=== PATIENT | female | born 1960 | race Caucasian/White ===

== ENCOUNTER 2022-01-21 06:11 | Day surgery (SDC) | payer BC ==
[2022-01-16 10:04] LABS: Absolute Lymphocytes (CBC) 2.5 K/uL (0.7-4.9); Hematocrit 38.7 % (36.0-45.0); Lymphocytes % 30.6 % (15.3-44.8); MPV 7.6 fL (7.6-11.3); RBC Red Blood Cell Count 4.28 M/uL (3.86-4.86)
[2022-01-16 10:09] LABS: Urine Appearance CLOUDY (Clear); Urine Bilirubin NEGATIVE (Negative); Urine Blood TRACE (Negative); Urine Color YELLOW (Yellow); Urine Glucose NEGATIVE (Negative); Urine Protein NEGATIVE (Negative); Urine Urobilinogen 0.2 mg/dL (0.2-1.0)
[2022-01-16 10:13] LABS: Urine Microscopic Reflex ORDER UMIC
[2022-01-16 10:13] LABS: Potassium 4.1 mmol/L (3.5-5.1)
[2022-01-16 10:26] LABS: Urine Bacteria 20-50 /HPF (<20); Urine RBC <5 /HPF (NONE SEEN)
[2022-01-16 10:27] LABS: Urine Mucus 1+ /HPF (NONE SEEN)
[2022-01-21] MEDS ORDERED: MIDAZOLAM HCL 2 MG/2 ML INJ ONE (06:27)
[2022-01-21] MEDS ORDERED: FENTANYL CITR 250 MCG/5 ML ONE (06:27)
[2022-01-21] MEDS ORDERED: propofoL 200 MG/20 ML VIAL IV ONE (06:27)
[2022-01-21] MEDS ORDERED: KETAMINE HCL 500 MG/5 ML VIAL ONE (06:27)
[2022-01-21] MEDS ORDERED: LIDOCAINE 2% MPF 5 ML VIAL ONE (06:27)
[2022-01-21] MEDS ORDERED: NS 0.9% VIAL 10 ML ONE (06:27)
[2022-01-21] MEDS ORDERED: dexAMETHasone 10 MG/ML VIAL ONE (06:27)
[2022-01-21] MEDS ORDERED: ROCURONIUM 50 MG/5 ML VIAL IV ONE ×2 (06:27→13:13)
[2022-01-21] MEDS ORDERED: ONDANSETRON 4 MG/2 ML VIAL ONE ×2 (06:30→14:15)
[2022-01-21] MEDS ORDERED: SCOPOLAMINE HYDROBROMIDE PATCH TD ONE (06:46)
[2022-01-21] MEDS ORDERED: CEFAZOLIN/SWI 2gm 2 GM/20 ML SYR ONE (06:46)
[2022-01-21] MEDS ORDERED: Ringers Lactate 1,000 ML IV ONE ×3 (06:46→11:01)
[2022-01-21] MEDS ORDERED: BUPIVACAINE 0.25% PF 10 ML VIAL ONE ×2 (06:47→07:27)
[2022-01-21] MEDS ORDERED: NA CHLORIDE 0.9% 1,000 ML ONE (06:48)
[2022-01-21] MEDS ORDERED: NA CHLORIDE 0.9% 0 ML ONE ×2 (06:48→21:21)
[2022-01-21] MEDS ORDERED: LIDOCAINE 1% W/EPI 1:100,000 10 ML VIAL ONE (06:48)
[2022-01-21] MEDS ORDERED: VASOPRESSIN 20 UNIT/ML VIAL ONE (06:49)
[2022-01-21] MEDS ORDERED: CEFAZOLIN SODIUM 1 GM/VIAL ONE ×2 (06:50→21:21)
[2022-01-21] MEDS ORDERED: EPHEDRINE SULF 50 MG/ML VIAL ONE (08:13)
[2022-01-21] MEDS ORDERED: BUPIVACAINE 0.5% Inj,MDV 50 mL VIAL IJ ONE (08:30)
[2022-01-21] MEDS ORDERED: VECURONIUM 10 MG/VIAL IV ONE (09:30)
[2022-01-21] MEDS ORDERED: FENTANYL CITR 100 MCG/2 ML ONE ×2 (11:36→12:57)
[2022-01-21] MEDS ORDERED: GLYCOPYRROLATE 0.2 MG/ML SYR ONE (14:10)
[2022-01-21] MEDS ORDERED: NEOSTIGMINE 1 MG/ML -5 ML ONE (14:10)
[2022-01-21] MEDS ORDERED: ACETAMINOPHEN 500 MG TAB PO PRN (14:50)
[2022-01-21] MEDS ORDERED: ONDANSETRON 4 MG/2 ML VIAL IV PRN (14:50)
[2022-01-21] MEDS ORDERED: PROMETHAZINE INJ 25 MG/ML AMP IV PRN (14:50)
--- NOTE | 2022-01-21 14:57 | P.BOP ---
Preoperative diagnosis: stage 2uterovaginal prolapse, PMB, post wall defect, EDU Postoperative diagnosis: same and sigmoid cecal adhesions Primary procedure: TLH RSO KWABENA 50min LSCP post and PB repairs, Bulking cysto Chief Gauger: Jessy Taylor Estimated blood loss: min Specimen: uterus right ovary and tube Findings: 0/0/-2/4.5/mod/8/0/0/-3 Anesthesia: General Complications: None Drain(s): Urinary catheter Implants: Upsylon Fluids & blood products: UO 200/ LR 2L Transferred to: Recovery Room Condition: Good
[2022-01-21 15:02] VITALS: O2SAT 100
[2022-01-21] MEDS ORDERED: IBUPROFEN 600 MG TAB PO PRN (15:18)
[2022-01-21 16:06] VITALS: BMI 31.8
[2022-01-21] MEDS ORDERED: INFLUENZA VACCINE (for 6+ mo) 0.5 ML DOSE IMVAC ONE (18:00)
[2022-01-21] MEDS: MEPERIDINE HCL 50 MG/ML IV PRN (18:28)
[2022-01-21] MEDS ORDERED: HOME MED 1 EA UNK (Lisinopril [Zestril] 2.5 MG Tablet) PO SCH (21:00)
[2022-01-21] MEDS ORDERED: ROPINIROLE HCL 1 MG TAB PO SCH ×2 (21:00)
[2022-01-21] MEDS ORDERED: lisinopriL 5 MG TAB PO SCH (21:00)
[2022-01-21] MEDS: Ringers Lactate 1,000 ML IV SCH (21:28)
[2022-01-21] MEDS: HYDROCODONE/APAP 5/325 MG TAB PO PRN (21:29)
[2022-01-21] MEDS: CEFAZOLIN 1 GM in NA CHLORIDE 0.9% 50 ML IVPB SCH (21:41)
[2022-01-21] MEDS ORDERED: NA CHLORIDE 0.9% 50 ML ONE (21:43)
[2022-01-22] MEDS: MEPERIDINE HCL 50 MG/ML IV PRN ×2 (00:08→06:06)
[2022-01-22] MEDS ORDERED: NA CHLORIDE 0.9% 0 ML ONE (05:19)
[2022-01-22] MEDS ORDERED: CEFAZOLIN SODIUM 1 GM/VIAL ONE (05:19)
[2022-01-22] MEDS: CEFAZOLIN 1 GM in NA CHLORIDE 0.9% 50 ML IVPB SCH (05:26)
[2022-01-22] MEDS: Ringers Lactate 1,000 ML IV SCH (05:29)
[2022-01-22 06:22] LABS: Absolute Lymphocytes (CBC) 2.7 K/uL (0.7-4.9); Hematocrit 32.8 % (36.0-45.0); Lymphocytes % 27.6 % (15.3-44.8); MPV 7.4 fL (7.6-11.3); RBC Red Blood Cell Count 3.62 M/uL (3.86-4.86)
[2022-01-22] MEDS: HYDROCODONE/APAP 5/325 MG TAB PO PRN (11:26)
[2022-01-22 11:29] VITALS: BP 121/66; TEMP 97.9
--- NOTE | 2022-01-26 06:53 | OP ---
Date of Procedure: 01/21/2022 Surgeon: Raina Ron MD Shipping/Receiving Clerk: Jessy Taylor Preoperative Diagnoses: 1.Stage II uterovaginal prolapse. 2.Postmenopausal bleeding. 3.Posterior wall defect. 4.Stress urinary incontinence. Postoperative Diagnoses: 1.Stage II uterovaginal prolapse. 2.Postmenopausal bleeding. 3.Posterior wall defect. 4.Stress urinary incontinence. 5.Sigmoid and cecal adhesion. Procedures Performed: 1.Total laparoscopic hysterectomy, right salpingo-oophorectomy, lysis of adhesion, which took about 50 minutes to take down the cecal adhesions from the anterior abdominal wall and sigmoid adhesions fr om the lateral wall, as well as left adnexa and the posterior cul-de-sac as well as the right, then t he left lateral wall. 2.Laparoscopic sacrocolpopexy using Epsilon BioMesh. 3.Posterior wall repair and perineal body repair. 4.Urethral bulking with Bulkamid and cystoscopy. Anesthesia: General endotracheal. Estimated Blood Loss: Minimal. Complications: No complications. Drains: Sofia catheter. Specimens: Uterus, right ovary and tube. Condition: Stable. Fluids: 2000. Urine Output: 200. Findings: There are sigmoid and cecal adhesions to the anterior abdominal wall on the right side and sigmoid adhesions to the lateral wall. The left cul-de-sac was partially obliterated with dense adh esions, which were taken down to release the colon down and expose the posterior cul-de-sac. The lef t tube and ovary were removed in 1997 and these were absent during the surgery. The closure of the sacrocolpopexy mesh was complete without any exposure of the graft. ProTack was u sed to tack the sacral arm of the mesh. Posterior repair done with vaginal route repair. Vaginal cuff closure was with 2-0 Vicryl sutures at both angles and V-Loc in 2 layers for the colpoto my. Indications: After patient was evaluated, endometrial sampling was performed. There was no atypia o r malignancy. Discussed about alternatives of treatment for prolapse, which included pessary and marry gical management. Patient declined pessary and wanted surgical management and laparoscopic repair us ing sacrocolpopexy or vaginal repair were reviewed. Due to postmenopausal bleeding standard of care our plan of performing a collapse repair was to remove the uterus. This was discussed with the patie nt and she was consented. Suspension of the true uterosacral ligament and sacrocolpopexy were going to be done as the hysterectomy was going to be laparoscopic. She was also explained that I would per form a vaginal procedure if indicated. Description Of Procedure: After informed consent was re-verified, she was taken back to OR, placed i n a supine fashion on the operating table. 2 g of Ancef was given. SCDs were placed and the abdomen , vulva, vagina, and perineum were prepped and draped in a sterile fashion. Sofia was placed to drai n the bladder and attached for retrograde filling. A medium VCare was introduced into the uterus and fixed. This area was draped. A 1 cm infraumbilical incision made with scalpel using the open laparoscopy technique. Fascia was in cised, tagged with 0 Vicryl sutures, and then peritoneum entered sharply. S-retractors were placed. Edelmira introduced. After adequate insufflation, site of entry was checked and was unremarkable. A 5 left lower quadrant, left upper quadrant and midclavicular line, and 10 suprapubic ports were all p laced. Then, the right lower quadrant port was also placed that was 8 mm. The left lower and right lower quadrant ports were 8 mm each. Then, after visualizing all the findings, upper abdomen was unr emarkable. Lower abdomen with the cecal adhesions taken down before the port was placed, and pelvis and lateral wall to the left adnexa, all the sigmoid adhesions were taken down and segment of colon t agged with 3-0 Monocryl and bowel brought out through the left upper quadrant, it was felt much more lateral to both the incisions on each side. After good visualization, the round ligament, the broad ligament were all taken down on the right alejandra e, anterior peritoneum opened to raise the bladder flap and connected to the opposite side. Posterio rly, dissection performed to the VCare cup. On the right side, dissection was performed to take down the tube and ovary from the lateral wall and likely round ligament taken down. Broad ligament was r emoved anterior to join bladder flap and posterior dissection performed to the uterosacral. The uter osacral ligament on the right was slightly prominent, however, on the left side could not be seen, es pecially with adhesion it was just very difficult and was very much lax and unidentifiable. The plan was to proceed with a sacrocolpopexy. Vessels were identified, cauterized and cut on the right side, then on the left side. Then, circumfe rential colpotomy was performed with monopolar hook blade. Specimen pulled out through the vagina. Vaginal cuff closure was performed after irrigation. Two simple 0 Vicryl suture through both angles and 2-0 V-Loc to close the vaginal cuff in 2 layers. After fully imbricating and having an excellent closure and a good seal, the vaginal spoon manipulator was introduced to perform the bladder dissect ion. The bladder was dissected about 3.5 cm from the vaginal cuff. The total vaginal length that wa s measured was about 8 cm. Once this dissection was performed, we felt this was satisfactory and the refore left alone. Then, attention directed to the posterior dissection. The rectosigmoid was pulle d inferiorly leaving a small layer of peritoneum right at the level of the cuff from the closure. I opened the peritoneum between the rectum and the posterior vaginal wall. Dissection was carried down at least to 7 cm. Once the rectum was completely reflected off, the lateral wall was dissected towa rds the right, going towards the uterosacral. Once this dissection was clear and the posterior wall was exposed, attention was directed to sacral d issection. Two peritoneal edges were picked up at the level of the S1, opened up using sharp scissors and the di ssection was performed opening up the peritoneum nicely between the sigmoid and the left ureter and o marilee the uterosacral joint to the right cul-de-sac section. Then, peritoneal edges were pulled apart, carefully preserving the meniscus to allow for expansion enough to position the mesh without rolling . Once this was done, we went on to dissect the presacral space, opening up the connective tissue, p reserving the nerve and retracting them laterally, exposing the anterior longitudinal ligament. Sacral vessels were not very prominent and there was no need to cauterize. Mesh was trimmed 7 cm posterior arm and 5 cm anterior arm. The anterior arm was secured to the sacra l arm with 0 Vicryl and 2-0 Monocryl suture. Then, the graft was taken with a central posterior dist al V-Loc suture. This was placed through the vaginal wall and the mesh was pulled down in place. Th en, two 2-0 Prolene sutures were placed at distal edges of the posterior arm with making sure that I did not penetrate with the Prolene through the vaginal epithelium to prevent exposure of the Prolene suture. Once these tubes were tied down, 2 V-Loc sutures were placed to position and keep the mesh f lat at the distal apex about 1.5 cm from the vaginal cuff closure. Once these were placed and this w as likely laid down in the posterior arm, the sacral arm was brought onto the sacrum. Two ProTack en ds were placed to the anterior longitudinal ligament and tension was checked. This was appropriate, not too tense and not too loose and the anterior arm was positioned. Two Prolene sutures were placed at both angles without tying them down, holding them tight. Position was checked vaginally, then gl oves were changed and then came back abdominally and tied down the colon. Then, central V-Loc at the distal anterior arm was placed and 2 V-Loc on each side through the remnant of the presacral fascia to hold the mesh without sliding on the anterior aspect, not too close to the cuff. Once all the sut ures were well positioned and the rest of the sacral arm was tacked with the ProTack and folded over, and peritoneum was closed with help of continuous 2-0 V-Loc in a Y-shaped fashion. Once there was e xcellent closure on both sides, then went down to thoroughly irrigate and suction the peritoneal cavi ty. No evidence of any trauma to the area of the colon that was tacked up there. The 3-0 Monocryl s uture was taken down, all trocars were removed under direct vision. down the right lower quadrant seemed to be bleeding, and this seemed to be close to the inferior epigastric. So, Bao-T homason needle was taken with 3-0 Vicryl suture and placed encircling area of the bleeder, and once t his was placed and brought down through the fascia, it was tied down through and through the rectus m uscle, fascia and the epigastric, so this could be painful. There was excellent hemostasis. The res t of the trocars were removed now and Marcaine was injected to all sides. Umbilical incision closed with the help of the tagged 0 Vicryl sutures tied to each other and then suprapubic area with simple 0 Vicryl stitch. All skin incisions with 3-0 chromic were closed. Then coming down vaginally, posterior wall was inspected. The distal posterior defect had to be repa ired as well as the perineal body. The remnants of the hymen were held with 2 Allis clamps. Then, p erineum and the posterior distal wall were injected with dilute vasopressin and triangular incision m barbra on the perineum and another triangular incision placed in the distal wall, the bases of which wer e touching each other. Then, dissection was carried about 3 cm from the hymenal ring proximally. Fa scia was dissected. The defect was mostly left lateral detachment from the perineal body. The perin eal body was widened. So, perineal body was dissected and the transverse perineal body exposed the s car here. Then, two Vicryl sutures were taken to reconstruct the perineal body. Once these two sutu res were placed and tied and PDS was taken and posterior wall was repaired and then reattached to the perineal body. Once this was done, then the suture was tied. Closure of the vaginal wall was perfo rmed with the help of 2-0 Vicryl in a continuous running fashion and 3-0 Monocryl in the perineum in subcutaneous and subcuticular fashion. Releasing incisions were placed on the side just to make sure that there was not any significant tightening or band at the level of the hymenal ring. Once this w as done, then the Sofia was removed. Cystoscopy was performed with a 17-Latvian sheath, 30-degree armen s and normal saline. Excellent jets of urine from both ureteric orifices, good suspension and the en tire bladder was well visualized. No evidence of any trauma or foreign body or tumor. The bladder was completely drained. A pediatric cystoscope was taken. Bulkamid bulking was the next procedure. Then, after priming the catheter and the needle system, the Bulkamid injection 1 mL was then hooked onto the needle, then leaving the needle at 5 o'clock positi on. The tip of the pediatric cystoscope was introduced into the internal meatus and passed the inter nal meatus. The needle was passed 2 cm past the internal meatus while the tip of the scope stayed th ere. Then this was retracted back to reach the midurethral region about 1.5 cm distal to the interna l meatus. Then, the injection was done to the urethral mucosa underneath it. Then, the bowel return ed facing the wall carefully staying parallel to the wall at each injection. At 5 o'clock and at 2 o 'clock, injections were done and there was detachment of the Bulkamid syringe from the needle due to the pressure, so some bulking agents were blocked. Then, a new syringe was taken. 6 mL was used fro m that syringe and then another 10 mL was taken. Then at 11 o'clock and at 8 o'clock, injections wer e performed to get a nice circular ring and placed a 12-Latvian Sofia to keep the bladder drained due to her colpopexy. Once this was done and there was excellent hemostasis, all the instrument, needle, and sponges were removed, counted, and they were correct x3. No vaginal packing was placed. Patilucas sharma was recovered from anesthesia and taken to PACU in stable condition and admitted overnight for obse rvation, voiding trial, and to follow up with me in the clinic. was notified of all the find ings and the procedures. GORDON/RENEE Voice ID: [id number] Report ID: [id number]
== END 2022-01-22 11:50 | disposition home or self-care (01) ==
LOC: OR 06:11 → 2ND-WC 15:15 → OR 01-22 11:50
PROVIDERS: ATTEND Obstetrics & Gynecology
PROC: 0DNH4ZZ Release Cecum, Percutaneous Endoscopic Approach (ICD-10-PCS; 2022-01-21)
PROC: 0DNN4ZZ Release Sigmoid Colon, Percutaneous Endoscopic Approach (ICD-10-PCS; 2022-01-21)
PROC: 0UN64ZZ Release Left Fallopian Tube, Percutaneous Endoscopic Approach (ICD-10-PCS; 2022-01-21)
PROC: 0DNU4ZZ Release Omentum, Percutaneous Endoscopic Approach (ICD-10-PCS; 2022-01-21)
PROC: 0USG7ZZ Reposition Vagina, Via Natural or Artificial Opening (ICD-10-PCS; 2022-01-21)
PROC: 0JQC0ZZ Repair Pelvic Region Subcutaneous Tissue and Fascia, Open Approach (ICD-10-PCS; 2022-01-21)
PROC: 0HQ9XZZ Repair Perineum Skin, External Approach (ICD-10-PCS; 2022-01-21)
PROC: 0TVD8ZZ Restriction of Urethra, Via Natural or Artificial Opening Endoscopic (ICD-10-PCS; 2022-01-21)
PROC: 0UT94ZZ Resection of Uterus, Percutaneous Endoscopic Approach (ICD-10-PCS; principal; 2022-01-21 07:30)
PROC: 0UT04ZZ Resection of Right Ovary, Percutaneous Endoscopic Approach (ICD-10-PCS; 2022-01-21 07:30)
PROC: 0UT54ZZ Resection of Right Fallopian Tube, Percutaneous Endoscopic Approach (ICD-10-PCS; 2022-01-21 07:30)
DX: N81.2 Incomplete uterovaginal prolapse (principal); N95.0 Postmenopausal bleeding; N39.3 Stress incontinence (female) (male); N95.2 Postmenopausal atrophic vaginitis; Z87.410 Personal history of cervical dysplasia; B37.3 Candidiasis of vulva and vagina; K66.0 Peritoneal adhesions (postprocedural) (postinfection); Z20.822 Contact with and (suspected) exposure to COVID-19; N80.0 Endometriosis of uterus; N83.8 Other noninflammatory disorders of ovary, fallopian tube and broad ligament
CPT/HCPCS: 58571; 44180; 58660; 49329; 57282; 57250; 51715; 87088; 85025 ×2; 87086; 80048; 36415 ×2; 86900; 86850; 85610; 86901; 88305; 85730; 94010; U0002; J2704; J2250; J3010 ×3; J1100; J2175 ×3; J2710; J0690 ×4; J7120 ×5; J7030; J2405 ×2; L8606; 81003; 81015; 88307

== ENCOUNTER 2022-01-25 12:14 | Emergency (ER) | payer BC ==
--- OUTSIDE RECORDS SUMMARY | 2022-01-25 12:17 | XMS REPORT | Continuity of Care Document ---
:1960 Author Organization [facility] t Address [address] [place] [place] [address] Dr. Patel [address] [place] [id number] Care Team Providers Name Role Phone GIUSEPPE SALDIVAR Attending Clinician Unavailable MINDA LOPEZ Attending Clinician Unavailable DASHA Attending Clinician Unavailable Payers Payer Name Policy Type Policy Number Effective Date Expiration Date S [facility] 2 [id number] 2021 00:00:00 Problems This patient has no known problems. Allergies, Adverse Reactions, Alerts This patient has no known allergies or adverse reactions. Medications This patient has no known medications. Procedures This patient has no known procedures. Encounters Start End Encounter Admission Attending Care Care Encounter Source Date/Time Date/Time Type Type Clinicians Facility Department ID 2021-09-13 2021-09-13 Outpatient TORRIE SALDIVAR [id number] [place] 00:00:00 00:00:00 GIUSEPPE kenny 2021-08-06 2021-08-06 Outpatient TORRIE LOPEZ [id number] [place] 00:00:00 00:00:00 MINDA Seybol d 2021-08-02 2021-08-02 Outpatient TORRIE LOPEZ [id number] [place] 00:00:00 00:00:00 MINDA Seybol d 2021-06-20 2021-06-20 Outpatient TORRIE LOU [id number] [place] 00:00:00 00:00:00 ZELDA Sebrielle drummond 2021-06-15 2021-06-15 Outpatient TORRIE LOU [id number] [place] 08:35:00 08:35:00 ZELDA Seyb old Results This patient has no known results.
[2022-01-25] MEDS ORDERED: NA CHLORIDE 0.9% 1,000 ML ONE (12:52)
[2022-01-25] MEDS ORDERED: NA CHLORIDE 0.9% 0 ML ONE (12:52)
[2022-01-25] MEDS ORDERED: Ringers Lactate 1,000 ML IV ONE (12:55)
[2022-01-25] MEDS ORDERED: MORPHINE 4 MG/ML SYR ONE ×2 (13:03→14:42)
[2022-01-25] MEDS ORDERED: ONDANSETRON 4 MG/2 ML VIAL ONE ×2 (13:03→14:42)
[2022-01-25 13:05] LABS: Absolute Lymphocytes (CBC) 1.3 K/uL (0.7-4.9); Hematocrit 35.3 % (36.0-45.0); Lymphocytes % 9.8 % (15.3-44.8); MPV 7.5 fL (7.6-11.3); RBC Red Blood Cell Count 3.91 M/uL (3.86-4.86)
[2022-01-25 13:11] LABS: Protime INR 1.15
[2022-01-25 13:26] LABS: ALT/SGPT 26 U/L (12-78); AST/SGOT 13 U/L (15-37); Albumin 3.5 g/dL (3.4-5.0); Alkaline Phosphatase 102 U/L (45-117); Amylase 24 U/L (25-115); BUN Blood Urea Nitrogen 9 mg/dL (7-18); Bicarbonate 26 mmol/L (21-32); Bilirubin Direct 0.1 mg/dL (0-0.2); Bilirubin Total 0.5 mg/dL (0.2-1.0); Creatine Phosphokinase 45 U/L (26-192); Glucose Level 128 mg/dL (74-106); Lipase 73 U/L (73-393); Potassium 3.9 mmol/L (3.5-5.1); Protein, Total 7.7 g/dL (6.4-8.2); Sodium Level 133 mmol/L (136-145)
[2022-01-25 13:28] LABS: CKMB Creatine Kinase MB < 1.0 ng/mL (1.0-3.6)
--- NOTE | 2022-01-25 13:43 | RAD REPORT ---
EXAM DESCRIPTION: CTAbdomen Pelvis W Contrast - 01/25/2022 1:31 pm CLINICAL HISTORY: Abdominal pain. Fever, post op COMPARISON: No comparisons TECHNIQUE: Biphasic CT imaging of the abdomen and pelvis was performed with 100 ml non-ionic IV cont rast. All CT scans are performed using dose optimization technique as appropriate and may include automated exposure control or mA/KV adjustment according to patient size. FINDINGS: The lung bases are clear. The liver, spleen, pancreas, adrenal glands and kidneys are within normal limits. Mild subcutaneous a ir is present along the flank region on the left an to lesser extent the right, likely postoperative in etiology. No bowel obstruction, free air, free fluid or abscess. Inflammation is seen in the pelvis fat withou t a localized abscess present. No evidence of significant lymphadenopathy. No suspicious bony findings. IMPRESSION: Moderate intrapelvic fat inflammation is seen. This may be postsurgical in etiology and there is no abscess collection evident. A follow-up short interval CT would be suggested if patient s ymptomology persists or progresses.
--- NOTE | 2022-01-25 14:17 | RAD REPORT ---
EXAM DESCRIPTION: RAD - Chest Single View - 01/25/2022 1:41 pm CLINICAL HISTORY: FEVER Chest pain. COMPARISON: No comparisons FINDINGS: Portable technique limits examination quality. The lungs are grossly clear. The heart is normal in size. No displaced fractures. IMPRESSION: No acute intrathoracic process suspected.
[2022-01-25 14:35] LABS: Urine Blood 2+ (Negative); Urine Glucose Negative (Negative); Urine Protein Negative (Negative); Urine pH 8.5 (5.0-7.0)
--- NOTE | 2022-01-25 15:04 | EDPHYS ---
Physician Documentation [facility] Name: Laura Fragoso Age: 61 yrs Sex: Female : 1960 Arrival Date: 01/25/2022 Time: 12:15 Bed 7 Private MD: ED Physician Roni Ricardo HPI: 01/25 13:10 This 61 yrs old Female presents to ER via Ambulatory with complaints of Post ms3 Surgical Pain. 13:10 The patient reports fever, that was measured at 101.8 degrees Fahrenheit. Onset: The ms3 symptoms/episode began/occurred gradually, 1 day(s) ago. Modifying factors: there are no obvious modifying factors. 61-year-old female with no past medical history presents for fevers and chills that began yesterday. Patient states her fever was up to 101.8. Patient endorses nausea. Patient denies vomiting or diarrhea. Patient states her pain is an 8/10 worse in the right lower quadrant. Patient denies inciting factors. Patient states taking her hydrocodone improved her pain. Historical: - Allergies: 12:28 No Known Allergies; ld1 - Home Meds: 12:28 lisinopril 2.5 mg Oral tab 1 tab once daily [Active]; ld1 - PMHx: 12:28 Hypertensive disorder; Restless leg; ld1 - PSHx: 12:28 Hysterectomy; Pelvic lift; ld1 - Immunization history:: Adult Immunizations up to date, Client reports receiving the 2nd dose of the Covid vaccine. - Social history:: Smoking status: Reported history of juuling and/or vaping. Patient uses alcohol, occasionally. ROS: 13:16 Eyes: Negative for injury, pain, redness, and discharge, Neck: Negative for injury, ms3 pain, and swelling, Cardiovascular: Negative for chest pain, and palpitations. Respiratory: Negative for shortness of breath, cough, wheezing, and pleuritic chest pain, Back: Negative for injury and pain, MS/Extremity: Negative for injury and deformity, Skin: Negative for injury, rash, and discoloration, Neuro: Negative for headache, weakness, numbness, tingling. 13:16 Constitutional: Positive for chills, fever. 13:16 Abdomen/GI: Positive for abdominal pain. Exam: 13:17 Constitutional: This is a well developed, well nourished patient who is awake, alert, ms3 and in no acute distress. Head/Face: Normocephalic, atraumatic. Eyes: Pupils equal round and reactive to light, extra-ocular motions intact. Lids and lashes normal. Conjunctiva and sclera are non-icteric and not injected. Periorbital areas with no swelling, redness, or edema. Neck: Trachea midline, no cervical lymphadenopathy. Supple, full range of motion without nuchal rigidity, or vertebral point tenderness. No Meningismus. Chest/axilla: Normal chest wall appearance and motion. Nontender with no deformity. Cardiovascular: Regular rate and rhythm with a normal S1 and S2. No gallops, murmurs, or rubs. Normal PMI, no JVD. No pulse deficits. Respiratory: Lungs have equal breath sounds bilaterally, clear to auscultation and percussion. No rales, rhonchi or wheezes noted. No increased work of breathing, no retractions or nasal flaring. Back: No spinal tenderness. No costovertebral tenderness. Full range of motion. 13:17 Abdomen/GI: Bowel sounds: normal, Palpation: moderate abdominal tenderness, in all quadrants. 13:17 Skin: Abdominal skin incisions without erythema or drainage.. 13:39 ECG was reviewed by the Attending Physician. ms3 Vital Signs: 12:25 BP 139 / 111; Pulse 123; Resp 18; Temp 99.1(O); Pulse Ox 100% on R/A; Weight 84.82 kg; ld1 Height 5 ft. 6 in. (167.64 cm); Pain 10/10; 13:17 BP 125 / 73; Pulse 101; ll1 14:44 BP 117 / 65; Pulse 95; Resp 18; Pulse Ox 96% on R/A; velazquez 12:25 Body Mass Index 30.18 (84.82 kg, 167.64 cm) ld1 MDM: 12:33 Patient medically screened. ms3 13:18 Differential diagnosis: Postop abscess versus urinary tract infection versus pneumonia ms3 versus Covid. Data reviewed: vital signs, nurses notes. 14:59 Data reviewed: lab test result(s), amylase and lipase, CBC, urinalysis, radiologic ms3 studies, CT scan, plain films. Data interpreted: Pulse oximetry: Interpretation: normal. Counseling: I had a detailed discussion with the patient and/or guardian regarding: the historical points, exam findings, and any diagnostic results supporting the discharge/admit diagnosis, lab results, radiology results, the need for outpatient follow up. ED course: Discussed case with Dr. Ron and she would like patient to have IV Levaquin and Flagyl in the emergency department. Patient to be discharged with Levaquin 500 mg daily and Flagyl 500 mg twice daily for 10 days. Discussed plan with patient. She understands and agrees with plan. All questions were answered. Return precautions discussed include worsening symptoms, or any other concerns. On reevaluation patient is improved, no apparent distress, nontoxic, ambulatory in the emergency department.. 01/25 12:45 Order name: Amylase, Serum 01/25 12:45 Order name: Basic Metabolic Panel 01/25 12:45 Order name: Blood Culture Adult (2) 01/25 12:45 Order name: CBC with Diff 01/25 12:45 Order name: CPK; Complete Time: 14:38 01/25 12:45 Order name: Ckmb; Complete Time: 14:38 01/25 12:45 Order name: LFT's; Complete Time: 14:38 01/25 12:45 Order name: Lactate; Complete Time: 14:38 01/25 12:45 Order name: Lipase; Complete Time: 14:38 01/25 12:45 Order name: Procalcitonin; Complete Time: 14:49 01/25 12:45 Order name: Protime (+inr); Complete Time: 14:38 01/25 12:45 Order name: Ptt, Activated; Complete Time: 14:38 01/25 12:45 Order name: Troponin HS; Complete Time: 14:38 01/25 12:45 Order name: Urine Microscopic Only; Complete Time: 21:27 01/25 12:45 Order name: Chest Single View XRAY; Complete Time: 14:38 01/25 12:46 Order name: Amylase; Complete Time: 14:38 ED01/25 12:46 Order name: Basic Metabolic Panel; Complete Time: 14:38 ED01/25 12:46 Order name: Blood Culture 01/25 12:46 Order name: CBC with Automated Diff; Complete Time: 14:38 EDMS 01/25 12:46 Order name: CT Abd/Pelvis - IV Contrast Only; Complete Time: 14:38 ms3 01/25 13:19 Order name: COVID-19 SARS RT PCR (Document "Date of Onset" if Symptomatic); Complete ms3 Time: 14:38 01/25 14:34 Order name: Urine Dipstick-Ancillary; Complete Time: 14:38 EDMS 01/25 12:45 Order name: Cardiac monitoring; Complete Time: 12:52 ms3 01/25 12:45 Order name: EKG - Nurse/Tech; Complete Time: 12:52 ms3 01/25 12:45 Order name: IV Saline Lock - Large Bore; Complete Time: 12:46 ms3 01/25 12:45 Order name: Labs collected and sent; Complete Time: 12:46 ms3 01/25 12:45 Order name: O2 Per Protocol; Complete Time: 12:46 ms3 01/25 12:45 Order name: O2 Sat Monitoring; Complete Time: 12:46 ms3 EC:39 Rate is 97 beats/min. Rhythm is regular. QRS [place] is Normal. GA interval is normal. QT ms3 interval is normal. Clinical impression: Normal ECG. Interpreted by me. Administered Medications: 12:52 Not Given (physician changed order): NS 0.9% (30 ml/kg) 30 ml/kg IV at bolus once; 1 Sepsis Protocol 13:06 Drug: NS 0.9% 1000 ml Route: IV; Rate: 1 bolus; Site: right antecubital; velazquez 13:07 Drug: morphine 4 mg Route: IVP; Site: right antecubital; velazquez 13:07 Follow up: Response: No adverse reaction velazquez 13:07 Drug: Zofran (Ondansetron) 4 mg Route: IVP; Site: right antecubital; velazquez 13:07 Follow up: Response: No adverse reaction velazquez 14:43 Drug: morphine 4 mg Route: IVP; Site: right antecubital; velazquez 14:43 Follow up: Response: No adverse reaction velazquez 14:43 Drug: Zofran (Ondansetron) 4 mg Route: IVP; Site: right antecubital; velazquez 14:43 Follow up: Response: No adverse reaction velazquez 15:15 Drug: LevaQUIN (levofloxacin) 500 mg Volume: 100 ml; Route: IVPB; Infused Over: 60 velazquez mins; Site: right antecubital; 15:15 Drug: Flagyl (metroNIDAZOLE) 500 mg Volume: 100 ml; Route: IVPB; Rate: 200 ml/hr; velazquez Infused Over: 30 mins; Site: right antecubital; Disposition Summary: 01/25/22 15:03 Discharge Ordered Location: Home ms3 Condition: Stable ms3 Diagnosis - Abdominal pain, Generalized ms3 - Fever, unspecified ms3 - Post operative pain ms3 Followup: ms3 - With: Raina Ron MD - When: 48 Hours - Reason: Discharge Instructions: - Discharge Summary Sheet ms3 - Abdominal Pain, Adult ms3 - Fever, Adult ms3 - Pain Without a Known Cause ms3 Forms: - Medication Reconciliation Form ms3 - Thank You Letter ms3 - Antibiotic Education ms3 - Prescription Opioid Use ms3 Prescriptions: - Flagyl 500 mg Oral Tablet - take 1 tablet by ORAL route every 12 hours for 10 days; 20 tablet; Refills: 0, ms3 Product Selection Permitted - levofloxacin 500 mg Oral Tablet - take 1 tablet by ORAL route once daily for 10 days; 10 tablet; Refills: 0, ms3 Product Selection Permitted Signatures: Dispatcher [employer] EDKelby Hernandez RN RN 1 Roni Ricardo DO DO ms3 Rachael Shine RN RN ld1 Graciela Wilkins RN RN velazquez
--- NOTE | 2022-01-25 15:04 | ER ---
Nurse's Notes [facility] Name: Laura Fragoso Age: 61 yrs Sex: Female : 1960 Arrival Date: 01/25/2022 Time: 12:15 Bed 7 Private MD: Diagnosis: Abdominal pain, Generalized;Fever, unspecified;Post operative pain Presentation: 01/25 12:25 Chief complaint: Patient states: Pt C/O RLQ incision pain - reports running a ld1 temperature since 01/24/2022. Pt states Dr. Hudson was supposed to call up here to request CT scan. Pt had hysterectomy and pelvic lift on 01/21/2022. Coronavirus screen: At this time, the client does not indicate any symptoms associated with coronavirus-19. Ebola Screen: No symptoms or risks identified at this time. Initial Sepsis Screen: Does the patient meet any 2 criteria? No. Patient's initial sepsis screen is negative. Does the patient have a suspected source of infection? No. Patient's initial sepsis screen is negative. Risk Assessment: Do you want to hurt yourself or someone else? Patient reports no desire to harm self or others. Onset of symptoms was January 25, 2022. 12:25 Method Of Arrival: Ambulatory ld1 12:25 Acuity: MELISSA 3 ld1 Triage Assessment: 12:28 General: Appears in no apparent distress. uncomfortable, Behavior is calm, cooperative, ld1 appropriate for age. Pain: Complains of pain in right lower quadrant Pain does not radiate. Pain currently is 10 out of 10 on a pain scale. Quality of pain is described as stabbing, Pain began gradually, Is continuous. EENT: No signs and/or symptoms were reported regarding the EENT system. Neuro: Level of Consciousness is awake, alert, obeys commands, Oriented to person, place, time, situation. Cardiovascular: Capillary refill < 3 seconds Patient's skin is warm and dry. Respiratory: Airway is patent Respiratory effort is even, unlabored, Respiratory pattern is regular, symmetrical. GI: Abdomen is flat, non-distended. : No signs and/or symptoms were reported regarding the genitourinary system. Derm: No signs and/or symptoms reported regarding the dermatologic system. Musculoskeletal: No signs and/or symptoms reported regarding the musculoskeletal system. Historical: - Allergies: 12:28 No Known Allergies; ld1 - Home Meds: 12:28 lisinopril 2.5 mg Oral tab 1 tab once daily [Active]; ld1 - PMHx: 12:28 Hypertensive disorder; Restless leg; ld1 - PSHx: 12:28 Hysterectomy; Pelvic lift; ld1 - Immunization history:: Adult Immunizations up to date, Client reports receiving the 2nd dose of the Covid vaccine. - Social history:: Smoking status: Reported history of juuling and/or vaping. Patient uses alcohol, occasionally. Screenin:09 Abuse screen: Denies threats or abuse. Denies injuries from another. Nutritional velazquez screening: No deficits noted. Tuberculosis screening: No symptoms or risk factors identified. Fall Risk IV access (20 points). Assessment: 13:09 General: Appears uncomfortable, Behavior is cooperative, anxious. Pain: Complains of velazquez pain in abdomen. GI: Reports upper abdominal pain, cramping, nausea, Pain is 10 out of 10 on a pain scale. Vital Signs: 12:25 BP 139 / 111; Pulse 123; Resp 18; Temp 99.1(O); Pulse Ox 100% on R/A; Weight 84.82 kg; ld1 Height 5 ft. 6 in. (167.64 cm); Pain 10/10; 13:17 BP 125 / 73; Pulse 101; ll1 14:44 BP 117 / 65; Pulse 95; Resp 18; Pulse Ox 96% on R/A; velazquez 12:25 Body Mass Index 30.18 (84.82 kg, 167.64 cm) ld1 ED Course: 12:15 Patient arrived in ED. ds1 12:28 Triage completed. ld1 12:28 Arm band placed on right wrist. ld1 12:32 Patient placed in an exam room, on a stretcher. ll1 12:33 Roni Ricardo DO is Attending Physician. ms3 12:40 Kelby Bach, TEVIN is Primary Nurse. ll1 13:09 Patient has correct armband on for positive identification. Bed in low position. velazquez 13:09 No provider procedures requiring assistance completed. Inserted saline lock: 20 gauge velazquez in right antecubital area, using aseptic technique. 13:31 CT Abd/Pelvis - IV Contrast Only In Process Unspecified. EDMS 13:41 Chest Single View XRAY In Process Unspecified. EDMS 15:02 aRina Ron MD is Referral Physician. ms3 16:12 IV discontinued, intact, Pressure dressing applied. velazquez Administered Medications: 12:52 Not Given (physician changed order): NS 0.9% (30 ml/kg) 30 ml/kg IV at bolus once; ll1 Sepsis Protocol 13:06 Drug: NS 0.9% 1000 ml Route: IV; Rate: 1 bolus; Site: right antecubital; velazquez 13:07 Drug: morphine 4 mg Route: IVP; Site: right antecubital; velazquez 13:07 Follow up: Response: No adverse reaction velazquez 13:07 Drug: Zofran (Ondansetron) 4 mg Route: IVP; Site: right antecubital; velazquez 13:07 Follow up: Response: No adverse reaction velazquez 14:43 Drug: morphine 4 mg Route: IVP; Site: right antecubital; velazquez 14:43 Follow up: Response: No adverse reaction velazquez 14:43 Drug: Zofran (Ondansetron) 4 mg Route: IVP; Site: right antecubital; velazquez 14:43 Follow up: Response: No adverse reaction velazquez 15:15 Drug: LevaQUIN (levofloxacin) 500 mg Volume: 100 ml; Route: IVPB; Infused Over: 60 velazquez mins; Site: right antecubital; 15:15 Drug: Flagyl (metroNIDAZOLE) 500 mg Volume: 100 ml; Route: IVPB; Rate: 200 ml/hr; velazquez Infused Over: 30 mins; Site: right antecubital; Outcome: 15:03 Discharge ordered by . ms3 16:12 Discharged to home with family. velazquez 16:12 Condition: good 16:12 Discharge instructions given to patient, family, Prescriptions given X 2. 16:13 Patient left the ED. velazquez Signatures: Dispatcher [employer] EDCA Charlotte Fontaine ds1 Kelby Bach RN RN ll1 Roni Ricardo DO DO ms3 Rachael Shine RN RN ld1 Graciela Wilkins RN RN velazquez
[2022-01-25 15:09] LABS: Urine Amorphous Sediment 4+ /HPF (NONE SEEN); Urine Bacteria <20 /HPF (<20); Urine RBC <5 /HPF (NONE SEEN)
[2022-01-25] MEDS ORDERED: Levofloxacin500mg IV 500 MG/100 ML BAG IV ONE (15:17)
[2022-01-25] MEDS ORDERED: METRONIDAZOLE 500mg IVPB 500 MG/100 ML BAG IV ONE (15:17)
[2022-01-25 16:28] VITALS: TEMP 99.1
[2022-01-25 16:31] VITALS: BP 117/65; O2SAT 96
== END 2022-01-25 16:13 | disposition home or self-care (01) ==
LOC: ER 12:14
DX: G89.18 Other acute postprocedural pain (principal); R50.9 Fever, unspecified; I10 Essential (primary) hypertension; Z20.822 Contact with and (suspected) exposure to COVID-19
CPT/HCPCS: 93005; 87040 ×2; 85025; 80048; 36415; 82150; 82550; 85610; 80076; 83605; 85730; 84484; 82553; 83690; 84145; 74177; 71045; 96375; 96374; 99284; U0003; Q9967; J7120; J7030; J2405 ×2; 81003; 81015; J7040

== ENCOUNTER 2022-04-15 07:12 | Day surgery (SDC) | payer BC ==
[2022-04-15] MEDS ORDERED: Ringers Lactate 1,000 ML IV ONE (07:19)
[2022-04-15] MEDS ORDERED: NA CHLORIDE 0.9% 50 ML ONE (07:20)
[2022-04-15] MEDS: CEFAZOLIN SODIUM 1 GM/VIAL ONE ×3 (08:42→10:54)
[2022-04-15] MEDS ORDERED: ACETAMINOPHEN 500 MG TAB ONE (08:54)
[2022-04-15] MEDS ORDERED: CELECOXIB 100 MG CAPSULE ONE (08:55)
[2022-04-15] MEDS ORDERED: LIDOCAINE 1% W/EPI 1:100,000 MDV 20 ML VIAL ONE (10:28)
[2022-04-15] MEDS ORDERED: NA CHLORIDE 0.9% 1,000 ML ONE (10:28)
[2022-04-15] MEDS ORDERED: MIDAZOLAM HCL 2 MG/2 ML INJ ONE (10:37)
[2022-04-15] MEDS ORDERED: FENTANYL CITR 100 MCG/2 ML ONE (10:40)
[2022-04-15] MEDS ORDERED: propofoL 200 MG/20 ML VIAL IV ONE (10:40)
[2022-04-15] MEDS ORDERED: LIDOCAINE 1% MPF 5 ML VIAL ONE (10:41)
[2022-04-15] MEDS ORDERED: ONDANSETRON 4 MG/2 ML VIAL ONE ×2 (10:42→11:47)
[2022-04-15] MEDS ORDERED: dexAMETHasone 10 MG/ML VIAL ONE (11:12)
[2022-04-15] MEDS ORDERED: GLYCOPYRROLATE 0.2 MG/ML SYR ONE (11:28)
[2022-04-15] MEDS ORDERED: TRAMADOL HCL 50 MG TAB PO PRN (11:35)
[2022-04-15] MEDS ORDERED: MEPERIDINE HCL 25 MG/ML SYR IM PRN (11:36)
--- NOTE | 2022-04-15 11:44 | P.BOP ---
Preoperative diagnosis: EDU Postoperative diagnosis: EDU Primary procedure: cysto urethral bulking with Bulkamid [employer] Mechanic Helper: NONE,NONE Estimated blood loss: min Specimen: none Findings: na Anesthesia: MAC Complications: None Transferred to: Recovery Room Condition: Good
[2022-04-15] MEDS ORDERED: HYDROMORPHONE HCL 1 MG/ML INJ ONE (11:47)
--- NOTE | 2022-04-15 13:06 | OP ---
Date of Procedure: 04/15/2022 Surgeon: Raina Ron MD Legal Adviser: No assistants. Preoperative Diagnosis: Stress urinary incontinence. Postoperative Diagnosis: Stress urinary incontinence. Procedure Performed: Cysto, urethral bulking with Bulkamid. Complications: No complications. Drains: No drains. Estimated Blood Loss: Minimal. Anesthesia: MAC. Findings: Normal cysto. Condition: Stable. Disposition: Transferred to the recovery room in stable condition. Procedure In Detail: The patient was brought in electively for urethral bulking for EDU. 1 g of Ancef was given preop. SCDs were started. Time-out was done. The patient was placed in a taylor pine fashion. MAC was given. Placed in a dorsal lithotomy position using Justin stirrups. Vulva, va liset, and perineum prepped and draped in a sterile fashion. Then, a pediatric cystoscope was taken a nd primed. The outlet was closed. The inlet was open. Saline was used for distention. Once the pe diatric cystoscope was introduced into the bladder, the bladder was distended slightly and made sure got a good look at bladder. Then, the cystoscope was pulled. The cystoscope had a sheath through wh ich the Bulkamid needle was inserted. Then, the entire cystoscope was taken to the level of the inte rnal urethral orifice. Then, the needle was extended 2 cm from there into the bladder. Then, the en tire system was pulled into the mid urethral area. The first injection was deployed at the 5 o'clock position. This did not seem to be good bleb as there was injection going into the bladder, so pulle d the needle out, restarted the procedure by re-measuring and pulling back, slightly displaced it to the right between 3 and 4 o'clock. Then, got an injection with a good raise. Then, moved the needle to 2 o'clock position and injected again 0.3 and then further another 0.3 to 0.4 and then on to the 10 to 11 o'clock position, and injected here and then onto the 7 o'clock position. Here, there was e xtrusion of the bulking agent and so this was pulled back slightly into the more distal part of the u rethra and then injection started here all the way in, the slightly deeper level. Once this was done , a slight touchup was done at 6 and 12 o'clock positions without any problems. A total of 1.6 mL of the Bulkamid was injected. No bleeding. The scope was pulled out. Then, a 12-Georgian Sofia cathete r that was flexible was placed in through the urethra into the bladder and then allowed the bladder t o drain and then the catheter was gently removed. The patient was recovered from anesthesia. Instru ment, needle, and sponge counts were correct. EBL minimal. She will have a voiding trial before she goes home. GORDON/RENEE Voice ID: [id number] Report ID: [id number]
[2022-04-15] MEDS ORDERED: TRAMADOL HCL 50 MG TAB ONE (13:07)
[2022-04-15] MEDS ORDERED: HYDROCODONE/APAP 10/325 TAB ONE (13:11)
[2022-04-15 14:24] VITALS: BP 105/56; TEMP 97.3; O2SAT 97
[2022-04-15] MEDS ORDERED: ROPINIROLE HCL 1 MG TAB PO SCH (21:00)
[2022-04-15] MEDS ORDERED: HOME MED 1 EA UNK (Lisinopril [Zestril] 2.5 MG Tablet) PO SCH (21:00)
[2022-04-16] MEDS ORDERED: MONTELUKAST 10 MG TAB PO SCH (09:00)
== END 2022-04-15 13:43 | disposition home or self-care (01) ==
LOC: OR 07:12
PROVIDERS: ATTEND Obstetrics & Gynecology
PROC: 0TVD8ZZ Restriction of Urethra, Via Natural or Artificial Opening Endoscopic (ICD-10-PCS; principal; 2022-04-15 09:00)
DX: N39.3 Stress incontinence (female) (male) (principal); N95.2 Postmenopausal atrophic vaginitis; Z20.822 Contact with and (suspected) exposure to COVID-19
CPT/HCPCS: 51715; U0002; J2704; J2250; J3010; J1100; J1170; J7120; J7030; J2405 ×2; J0690